=== PATIENT | female | born 1965 | race Two or more races ===

== ENCOUNTER 2025-04-03 09:14 | Outpatient (AMB) | payer OTHER, SELFPAY ==
--- NOTE | 2025-04-03 09:28 | ORTHONT_ITS ---
Vital signs 04/03/25 09:37 Height 1.52 m Height Method Stated Weight 91.852 kg Weight Measurement Method Standing Scale BMI 39.5 BP 124/78 Blood Pressure Source Automatic Cuff Blood Pressure Location Right Upper Arm Position Sitting Respiration 18 Pulse 90 Pulse Source Monitor Temp 97.5 F Temp Source Temporal Artery Scan Pulse Oximetry (%) 96 Oxygen Delivery Method Room Air Med/Allergies Allergies & Medications Allergies No Known Drug Allergies Allergy (Verified 04/03/25 09:38) Medication Reconciliation atorvastatin 20 mg tablet 20 mg PO QDAY 04/03/25 [History] canagliflozin 300 mg tablet 300 mg PO QAM 04/03/25 [History] celecoxib 200 mg capsule (Celebrex) 200 mg PO QDAY 04/03/25 [History Confirmed 04/03/25] dexlansoprazole 60 mg capsule,biphase delayed release 60 mg PO QDAY 04/03/25 [History Confirmed 04/03/25] diclofenac sodium 1 % topical gel 2 g topical QID 04/03/25 [History Confirmed 04/03/25] dicyclomine 10 mg/5 mL oral syrup 10 mg PO BID 04/03/25 [History Confirmed 04/03/25] epinephrine 0.3 mg/0.3 mL injection, auto-injector 0.3 mg IM Q5-15M PRN 04/03/25 [History Confirmed 04/03/25] ergocalciferol (vitamin D2) 50,000 unit tablet unit PO 04/03/25 [History Confirm ed 04/03/25] esomeprazole magnesium 20 mg capsule,delayed release ([employer] (esomeprazole)) 20 mg PO QDAY 04/03/25 [History Confirmed 04/03/25] famotidine 40 mg tablet 40 mg PO QDAY 04/03/25 [History Confirmed 04/03/25] fluconazole 200 mg tablet 200 mg PO QDAY 04/03/25 [History Confirmed 04/03/25] furosemide 40 mg tablet 40 mg PO BID 04/03/25 [History Confirmed 04/03/25] gabapentin 300 mg capsule 300 mg PO QDAY 04/03/25 [History Confirmed 04/03/25] hyoscyamine sulfate 0.125 mg tablet 0.125 mg PO QID 04/03/25 [History Confirmed 04/03/25] ibuprofen 800 mg tablet 800 mg PO Q6H 04/03/25 [History] insulin glargine 100 unit/mL (3 mL) subcutaneous pen 20 unit subcut BID 04/03/25 [History Confirmed 04/03/25] insulin lispro 100 unit/mL subcutaneous solution (Admelog U-100 Insulin lispro) 10 unit subcut TID 04/03/25 [History] linaclotide 290 mcg capsule 290 mcg PO QDAY 04/03/25 [History Confirmed 04/03/25] losartan 100 mg tablet 100 mg PO QDAY 04/03/25 [History Confirmed 04/03/25] metformin 1,000 mg tablet 1,000 mg PO QDAY 04/03/25 [History] naloxone 4 mg/actuation nasal spray 4 mg intranasal Q2M PRN 04/03/25 [History Confirmed 04/03/25] pioglitazone 30 mg tablet 30 mg PO QDAY 04/03/25 [History] polyethylene glycol ea miscellaneous 04/03/25 [History Confirmed 04/03/25] potassium chloride 20 mEq tablet,extended release 20 meq PO QDAY 04/03/25 [History Confirmed 04/03/25] tirzepatide 10 mg/0.5 mL subcutaneous pen injector 10 mg subcut QWEEK 04/03/25 [History Confirmed 04/03/25] tramadol 50 mg tablet 50 mg PO QDAY 04/03/25 [History] Exam Exam Patient is in no acute distress and is cooperative with the examination today. Breathing is nonlabored. Patient has a normal mood and affect. Bilateral extremities were evaluated and demonstrates sensation intact to light touch. Palpable pedal pulses are present. No significant edema is present. Bilateral hips were examined. The patient has no pain with log roll of the hips. Internal rotation to 30 degrees and external rotation to 30 degrees is painless. Negative FADIR. Right knee was examined today. The right knee is in reasonable alignment. Range of motion from 0-120 degrees. Knee is stable to varus and valgus as well as AP translation with <5mm. Patient has a negative McMurrays. There is no pain with patellofemoral compression and no crepitus noted. The knee is nontender to palpation. Left knee was examined today. The left knee is in varus alignment. Range of motion from 0-115 degrees. Knee is stable to varus and valgus as well as AP translation with <5mm. Patient has a negative McMurrays. There is no pain with patellofemoral compression and no crepitus noted. The knee is tender to palpation medially. Left ankle looks considerably swollen. It looks like a Charcot joint. Assessment and Plan Problem List (1) Pain in left knee: Status: Acute Plan: Patient is a pleasant 59-year-old female with bilateral knee pain and bilateral knee arthritis. I would like to get weightbearing x-rays to better evaluate the severity of the arthritis. I will see her back in approximately 1 to 2 weeks after x-rays are done. We discussed that injections may be difficult as her diabetes is currently uncontrolled. Will continue with conservative management at this time. 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 Level 4 (3891-1515) MA Intake Visit Data Collection New Patient or Established: New Patient (never been to [facility]) Seen by Clinical Staff ONLY (RN/MA): No 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 Primary Care Provider: [place] VELASCO G PCP or OBGYN visit in last 3 months: Yes Hx Now: No Do You Feel Safe at Home: Yes Authorities Contacted: N/A Questionairres Past Medical History Past Medical History Have you ever been diagnosed with any of the following: Neurological Problems Cerebrovascular Accident (CVA): No Transient Ischemic Attacks (TIA): No Dementia: No Alzheimer's Disease: No Parkinson's Disease: No Brain Tumor: No Meningitis: No Seizures: No Epilepsy: No Multiple Sclerosis: No Cerebral Palsy: No Amyotrophic Lateral Sclerosis (ALS/Dorita Gehrig's): No Guillain-[place] Syndrome: No Spina Bifida: No Paralysis: No Peripheral Neuropathy: No Dozier's Palsy: No Subdural Hematoma: No Migraine: No Head Trauma: No Spinal Cord Injury: No Traumatic Brain Injury: No Cardiology Problems Myocardial Infarction: No Cardiac Arrhythmia: No Atrial Fibrillation: No Angina: No Heart Murmur: No Coronary Artery Disease: No Atherosclerotic Heart Disease: No Peripheral Vascular Disease: No Hypercholesterolemia: No Aneurysm: No Congestive Heart Failure: No Congenital Heart Disease: No Valvular Heart Disease: No Rheumatic Fever: No Cardiomyopathy: No Edema: No Pericarditis: No Cellulitis: No Deep Vein Thrombosis: No Hypertension: Yes Hypotension: No Varicose Veins: No Respiratory Problems Chronic Obstructive Pulmonary Disease (COPD): No Asthma: No Bronchitis: No Emphysema: No Pneumonia: No Pulmonary Fibrosis: No Tuberculosis: No Pulmonary Embolism: No Pulmonary Edema: No Sleep Apnea: No CPAP Dependent: No Respiratory Aspiration: No Dyspnea: No Orthopnea: No Hx Cough: No Cough: No Wheezing: No Chest Deformities: No Smoking: No Smoking Cessation Counseling: No Smoking Exposure: No Tobacco Use: No Clubbing: No Exposure to Respiratory Irritants: No Intubation: No Stomache/Intestinal Problems Liver Cancer: No Hepatitis: No Cirrhosis: No Pancreatic Cancer: No Pancreatitis: No Celiac Disease: No Gall Bladder Disease: No Gastrointestinal Bleed: No Esophageal Varices: No Castaneda's Esophagus: No Colitis: No Ulcerative Colitis: No Diverticulitis: No Diverticulosis: No Ulcer: No Colorectal Cancer: No Irritable Bowel: No Crohn's Disease: No Obstructive Bowel: No Hiatal Hernia: No Hemorrhoids: No Gastroesophageal Reflux Disease: Yes Polyps: No Obesity: Yes Genital/Urinary Problems Chronic Kidney Disease: No Renal Disease: No Kidney Stones: No Polycystic Kidney Disease: No Neurogenic Bladder: No Inguinal Hernia: No Dialysis: No Reproductive Problems Breast Cancer: No Endometriosis: No Fibroids: No Genital Herpes: No Gonorrhea: No Pelvic Inflammatory Disease: No Polycystic Ovarian Syndrome: No Previous Pregnancies: No Syphilis: No Uterine Prolapse: No Musculoskeletal Problems Muscular Dystrophy: No Myasthenia Gravis: No Marfan's Syndrome: No Bone Cancer: No Arthritis: No Rheumatoid Arthritis: No Osteoporosis: No Degenerative Disk Disease: No Gout: No Scoliosis: No Carpal Tunnel Syndrome: No Fibromyalgia: No Fractures: No Degenerative Joint Disease: No Osteomyelitis: No Poliovirus: No Head,Eye,Nose,Throat Problems Cataracts: No Glaucoma: No Blind: No Retinal Detachment: No Macular Degeneration: No Chronic Ear Infections: No Deafness: No Eye Prosthesis: No Endocrine Problems Diabetes Mellitus Type 1: Yes Diabetes Mellitus Type 2: No Hypoglycemia: No [place]'s Syndrome: No [place]'s Disease: No Hyperthyroidism: No Hypothyroidism: No Thyroid Cancer: No Parathyroid Disease: No Pituitary Disease: No Systemic Lupus Erythematosus: No Syndrome of Inappropriate Antidiuretic Hormone: No Adrenal Disease: No Graves' Disease: No Blood Problems Anemia: No Leukemia: No Hemophilia: No Thalassemia: No Sickle Cell Disease: No Clotting Problems: No Psychologic Problems Schizophrenia: No Recreational Drug Use: No Bipolar Disorder: No Depression: No Anxiety: No Behavior Problems: No Self-Mutilation: No Attention Deficit Disorder: No Attention Deficit Hyperactivity Disorder: No Depression: No Post Traumatic Stress Disorder: No Eating Disorder: No Other Problems Hospitalization: No Autoimmune Disease: No Down Syndrome: No Autism: No Developmental Delay: No Cosmetic Surgery: No Shingles: No Falls: No Blood Transfusions: No Blood Transfusion Reaction: No Anesthesia Reactions: No Organ Transplant: No Chemotherapy: No Radiation Therapy: No Hyperbaric Therapy: No MRSA: No VRSA: No Vancomycin-Resistant Enterococci: No Human Immunodeficiency Virus (HIV): No Chicken Pox: No Measles: No Mumps: No Rubella (N[place]alese Measles): No Pertussis: No Klebsiella Pneumoniae Carbapenemase Producing Bacteria: No Clostridium Difficile: No Hepatitis A: No Hepatitis B: No Hepatitis C: No Communicable Disease: No Cancer: No Cervical Cancer: No Lung Cancer: No Ovarian Cancer: No Surgical History Angioplasty: No Appendectomy: No Bariatric Surgery: No Breast Surgery: No Cancer Surgery: No Carotid Endarterectomy: No Cholecystectomy: No Colectomy: No Colostomy: No Coronary Artery Bypass Graft: No Valve Replacement: No Herniorrhaphy: No Total Hip Replacement: No Total Knee Replacement: No Hysterectomy: No Pacemaker: No Sinus Surgery: No Splenectomy: No TAHBSO-Total Abdominal Hysterectomy: No Thyroidectomy: No Ureter Stent: No Subjective Visit Visit for: new patient and knee Immunization / Flu Flu Vaccine in the Last 12 Months: Yes Flu Vaccine Exclusion Criteria: Allergy to Eggs History of Present Illness Chief complaint: LEFT KNEE PAIN Rylee is a pleasant 72 female with bilateral knee pain. The left knee pain is worse than the right. She has tried injections in the past. She also has uncontrolled diabetes and Charcot ankle. She sees a cfo controller for this. She has not had any injections of the left knee recently. Personal History Occupation: RETIRED [employer] provided: Yes Pain Pain level (0-10): 8 Pain duration: ALL DAY Pain location: inside (medial) and outside (lateral) Pain quality: sharp Pain timing: night and increases with activity Associated signs & symptoms: numbness Ambulatory data Ambulatory device: none Treatments Number of previous injections: 1 Improvement with previous injections: Yes Number of Physical Therapy sessions: 0 Improvement with PT: No Improvement with NSAIDS: no Review of Systems Review of Systems: All systems negative unless otherwise noted in HPI.
[2025-04-03 09:37] VITALS: BP 124/78; PULSE 90; RESP 18; TEMP 36.4; O2SAT 96; BMI 39.5
--- NOTE | 2025-04-03 10:00 | XR_ITS ---
Examination: Bilateral knees 2 views Right lateral knee left lateral knee 2 views Bilateral axial knees single view TECHNIQUE: Bilateral AP knees standing single view, bilateral PA knees standing flexion single view Standing right lateral knee left lateral knee 2 views Bilateral axial knees single view Date and time: April 03, 2025 1025 hours INDICATIONS: Patient fell 3 years ago with injury to both knees, bilateral knee pain. FINDINGS: Bilateral advanced narrowing medial joint spaces Bilateral advanced osteoarthritis patellofemoral joints No fractures No patellar dislocation IMPRESSION: Bilateral advanced narrowing medial joint spaces
--- NOTE | 2025-04-03 10:00 | XR_ITS ---
Examination: Left ankle 2 views Technique one AP lateral left ankle 2 views Date and time: April 03, 2025 1036 hours INDICATIONS: Left ankle pain and swelling beginning 3 months ago. FINDINGS: Prominent bimalleolar soft tissue swelling Large plantar posterior bony calcaneal spurs. No acute fracture IMPRESSION: No acute fracture.
== END 2025-04-03 10:10 | disposition home or self-care (01) ==
LOC: HODSRG 09:14
PROVIDERS: Supervising Provider Orthopaedic Surgery Adult Reconstructive Orthopaedic Surgery; Visit Provider Orthopaedic Surgery Adult Reconstructive Orthopaedic Surgery
DX: M25.562 Pain in left knee (principal); M25.561 Pain in right knee; M17.0 Bilateral primary osteoarthritis of knee; I10 Essential (primary) hypertension; K21.9 Gastro-esophageal reflux disease without esophagitis; E10.9 Type 1 diabetes mellitus without complications
CPT/HCPCS: 73564; 73600; 99204; G0463

== ENCOUNTER 2025-04-18 10:02 | Outpatient (AMB) | payer OTHER, SELFPAY ==
--- NOTE | 2025-04-18 10:45 | ORTHONT_ITS ---
Vital signs 04/18/25 10:46 Height 1.52 m Height Method Measured Weight 93.213 kg Weight Measurement Method Standing Scale BMI 40.3 BP 100/62 Blood Pressure Source Automatic Cuff Blood Pressure Location Left Upper Arm Position Sitting Respiration 18 Pulse 92 Pulse Source Monitor Temp 97.3 F Temp Source Temporal Artery Scan Pulse Oximetry (%) 96 Oxygen Delivery Method Room Air Med/Allergies Allergies & Medications Allergies No Known Drug Allergies Allergy (Verified 04/18/25 10:55) Medication Reconciliation atorvastatin 20 mg tablet 20 mg PO QDAY 04/03/25 [History Confirmed 04/18/25] canagliflozin 300 mg tablet 300 mg PO QAM 04/03/25 [History Confirmed 04/18/25] celecoxib 200 mg capsule (Celebrex) 200 mg PO QDAY 04/03/25 [History Confirmed 04/18/25] dexlansoprazole 60 mg capsule,biphase delayed release 60 mg PO QDAY 04/03/25 [History Confirmed 04/18/25] diclofenac sodium 1 % topical gel 2 g topical QID 04/03/25 [History Confirmed 04/18/25] dicyclomine 10 mg/5 mL oral syrup 10 mg PO BID 04/03/25 [History Confirmed 04/18/25] epinephrine 0.3 mg/0.3 mL injection, auto-injector 0.3 mg IM Q5-15M PRN 04/03/25 [History Confirmed 04/18/25] ergocalciferol (vitamin D2) 50,000 unit tablet unit PO 04/03/25 [History Confirmed 04/18/25] esomeprazole magnesium 20 mg capsule,delayed release (Acid Electrical Control Assembler (esomeprazole)) 20 mg PO QDAY 04/03/25 [History Confirmed 04/18/25] famotidine 40 mg tablet 40 mg PO QDAY 04/03/25 [History Confirmed 04/18/25] fluconazole 200 mg tablet 200 mg PO QDAY 04/03/25 [History Confirmed 04/18/25] furosemide 40 mg tablet 40 mg PO BID 04/03/25 [History Confirmed 04/18/25] gabapentin 300 mg capsule 300 mg PO QDAY 04/03/25 [History Confirmed 04/18/25] hyoscyamine sulfate 0.125 mg tablet 0.125 mg PO QID 04/03/25 [History Confirmed 04/18/25] ibuprofen 800 mg tablet 800 mg PO Q6H 04/03/25 [History Confirmed 04/18/25] insulin glargine 100 unit/mL (3 mL) subcutaneous pen 20 unit subcut BID 04/03/25 [History Confirmed 04/18/25] insulin lispro 100 unit/mL subcutaneous solution (Admelog U-100 Insulin lispro) 10 unit subcut TID 04/03/25 [History Confirmed 04/18/25] linaclotide 290 mcg capsule 290 mcg PO QDAY 04/03/25 [History Confirmed 04/18/25] losartan 100 mg tablet 100 mg PO QDAY 04/03/25 [History Confirmed 04/18/25] metformin 1,000 mg tablet 1,000 mg PO QDAY 04/03/25 [History Confirmed 04/18/25] naloxone 4 mg/actuation nasal spray 4 mg intranasal Q2M PRN 04/03/25 [History Confirmed 04/18/25] pioglitazone 30 mg tablet 30 mg PO QDAY 04/03/25 [History Confirmed 04/18/25] polyethylene glycol ea miscellaneous 04/03/25 [History Confirmed 04/18/25] potassium chloride 20 mEq tablet,extended release 20 meq PO QDAY 04/03/25 [History Confirmed 04/18/25] tirzepatide 10 mg/0.5 mL subcutaneous pen injector 10 mg subcut QWEEK 04/03/25 [History Confirmed 04/18/25] tramadol 50 mg tablet 50 mg PO QDAY 04/03/25 [History Confirmed 04/18/25] Exam Exam Patient is in no acute distress and is cooperative with the examination today. Breathing is nonlabored. Patient has a normal mood and affect. Bilateral extremities were evaluated and demonstrates sensation intact to light touch. Palpable pedal pulses are present. No significant edema is present. Bilateral hips were examined. The patient has no pain with log roll of the hips. Internal rotation to 30 degrees and external rotation to 30 degrees is painless. Negative FADIR. Right knee was examined today. The right knee is in reasonable alignment. Range of motion from 0-120 degrees. Knee is stable to varus and valgus as well as AP translation with <5mm. Patient has a negative McMurrays. There is no pain with patellofemoral compression and no crepitus noted. The knee is nontender to palpation. Left knee was examined today. The left knee is in varus alignment. Range of motion from 0-115 degrees. Knee is stable to varus and valgus as well as AP translation with <5mm. Patient has a negative McMurrays. There is no pain with patellofemoral compression and no crepitus noted. The knee is tender to palpation medially. Assessment and Plan Problem List (1) Pain in left knee: Status: Acute Plan: Patient is a pleasant 59-year-old female with bilateral knee pain and bilateral knee arthritis. I would like to get weightbearing x-rays to better evaluate the severity of the arthritis. I will see her back in approximately 1 to 2 weeks after x-rays are done. We discussed that injections may be difficult as her diabetes is currently uncontrolled. Will continue with conservative management at this time. She is not a great operative candidate due to her Charcot arthritis Bilateral knee xrays demonstrate significant joint space narrowing medially. She reports that her hemoglobin A1c is 8.5 in [place] 3 months. We will give her an injection if her sugars can be more controlled. Her fasting sugar today was around 160 Office Procedures GNS Level of Care Nursing/Assessment Patient Status: Established Patient Nursing Assessment/Reassesment: Medication Reconciliation, Update PMH in EMR and Vital Signs Coordination of Care: Complex Care and Chronic Disease 1-5, Education Complex Pt/Fam, Consent,records obtained, informed consent, Results/Orders obtained and Staff clarify orders Special Needs: Language special needs Established Patient Charge Established Patient Point Assignment: 95 Established Patient Point Charge: EP Level 3 (80-115) MA Intake Visit Data Collection New Patient or Established: Established Patient (seen at [facility] within 3 years) Reason for Visit:: F/U XRAY RESULTS Seen by Clinical Staff ONLY (RN/MA): No 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 PCP or OBGYN visit in last 3 months: Yes Hx Now: No Do You Feel Safe at Home: Yes Authorities Contacted: N/A Questionairres Past Medical History Past Medical History Have you ever been diagnosed with any of the following: Neurological Problems Cerebrovascular Accident (CVA): No Transient Ischemic Attacks (TIA): No Dementia: No Alzheimer's Disease: No Parkinson's Disease: No Brain Tumor: No Meningitis: No Seizures: No Epilepsy: No Multiple Sclerosis: No Cerebral Palsy: No Amyotrophic Lateral Sclerosis (ALS/Dorita Gehrig's): No Guillain-Logsden Syndrome: No Spina Bifida: No Paralysis: No Peripheral Neuropathy: No Dozier's Palsy: No Subdural Hematoma: No Migraine: No Head Trauma: No Spinal Cord Injury: No Traumatic Brain Injury: No Cardiology Problems Myocardial Infarction: No Cardiac Arrhythmia: No Atrial Fibrillation: No Angina: No Heart Murmur: No Coronary Artery Disease: No Atherosclerotic Heart Disease: No Peripheral Vascular Disease: No Hypercholesterolemia: No Aneurysm: No Congestive Heart Failure: No Congenital Heart Disease: No Valvular Heart Disease: No Rheumatic Fever: No Cardiomyopathy: No Edema: No Pericarditis: No Cellulitis: No Deep Vein Thrombosis: No Hypertension: Yes Hypotension: No Varicose Veins: No Respiratory Problems Chronic Obstructive Pulmonary Disease (COPD): No Asthma: No Bronchitis: No Emphysema: No Pneumonia: No Pulmonary Fibrosis: No Tuberculosis: No Pulmonary Embolism: No Pulmonary Edema: No Sleep Apnea: No CPAP Dependent: No Respiratory Aspiration: No Dyspnea: No Orthopnea: No Hx Cough: No Cough: No Wheezing: No Chest Deformities: No Smoking: No Smoking Cessation Counseling: No Smoking Exposure: No Tobacco Use: No Clubbing: No Exposure to Respiratory Irritants: No Intubation: No Stomache/Intestinal Problems Liver Cancer: No Hepatitis: No Cirrhosis: No Pancreatic Cancer: No Pancreatitis: No Celiac Disease: No Gall Bladder Disease: No Gastrointestinal Bleed: No Esophageal Varices: No Castaneda's Esophagus: No Colitis: No Ulcerative Colitis: No Diverticulitis: No Diverticulosis: No Ulcer: No Colorectal Cancer: No Irritable Bowel: No Crohn's Disease: No Obstructive Bowel: No Hiatal Hernia: No Hemorrhoids: No Gastroesophageal Reflux Disease: Yes Obesity: Yes Genital/Urinary Problems Renal Disease: No Kidney Stones: No Polycystic Kidney Disease: No Neurogenic Bladder: No Inguinal Hernia: No Dialysis: No Reproductive Problems Breast Cancer: No Endometriosis: No Fibroids: No Genital Herpes: No Gonorrhea: No Pelvic Inflammatory Disease: No Polycystic Ovarian Syndrome: No Previous Pregnancies: No Syphilis: No Uterine Prolapse: No Musculoskeletal Problems Muscular Dystrophy: No Myasthenia Gravis: No Marfan's Syndrome: No Bone Cancer: No Arthritis: No Rheumatoid Arthritis: No Osteoporosis: No Degenerative Disk Disease: No Gout: No Scoliosis: No Carpal Tunnel Syndrome: No Fibromyalgia: No Fractures: No Degenerative Joint Disease: No Osteomyelitis: No Poliovirus: No Head,Eye,Nose,Throat Problems Cataracts: No Glaucoma: No Blind: No Retinal Detachment: No Macular Degeneration: No Chronic Ear Infections: No Deafness: No Eye Prosthesis: No Endocrine Problems Diabetes Mellitus Type 1: Yes Diabetes Mellitus Type 2: No Hypoglycemia: No Hobart's Syndrome: No Tad's Disease: No Hyperthyroidism: No Hypothyroidism: No Thyroid Cancer: No Parathyroid Disease: No Pituitary Disease: No Systemic Lupus Erythematosus: No Syndrome of Inappropriate Antidiuretic Hormone: No Adrenal Disease: No Graves' Disease: No Blood Problems Anemia: No Leukemia: No Hemophilia: No Thalassemia: No Sickle Cell Disease: No Clotting Problems: No Psychologic Problems Schizophrenia: No Recreational Drug Use: No Bipolar Disorder: No Depression: No Anxiety: No Behavior Problems: No Self-Mutilation: No Attention Deficit Disorder: No Attention Deficit Hyperactivity Disorder: No Depression: No Post Traumatic Stress Disorder: No Eating Disorder: No Other Problems Hospitalization: No Down Syndrome: No Autism: No Developmental Delay: No Cosmetic Surgery: No Shingles: No Falls: No Blood Transfusions: No Blood Transfusion Reaction: No Anesthesia Reactions: No Organ Transplant: No Chemotherapy: No Radiation Therapy: No Hyperbaric Therapy: No MRSA: No VRSA: No Vancomycin-Resistant Enterococci: No Human Immunodeficiency Virus (HIV): No Chicken Pox: No Measles: No Mumps: No Rubella (Tamazight Measles): No Pertussis: No Klebsiella Pneumoniae Carbapenemase Producing Bacteria: No Clostridium Difficile: No Hepatitis A: No Hepatitis B: No Hepatitis C: No Communicable Disease: No Cancer: No Cervical Cancer: No Lung Cancer: No Ovarian Cancer: No Surgical History Angioplasty: No Appendectomy: No Bariatric Surgery: No Breast Surgery: No Cancer Surgery: No Carotid Endarterectomy: No Cholecystectomy: No Colectomy: No Colostomy: No Coronary Artery Bypass Graft: No Valve Replacement: No Herniorrhaphy: No Total Hip Replacement: No Total Knee Replacement: No Hysterectomy: No Pacemaker: No Sinus Surgery: No Splenectomy: No TAHBSO-Total Abdominal Hysterectomy: No Thyroidectomy: No Ureter Stent: No Subjective Visit Visit for: follow up visit and knee Immunization / Flu Flu Vaccine in the Last 12 Months: No Flu Vaccine Exclusion Criteria: No Exclusion Criteria History of Present Illness Chief complaint: F/U XRAY RESULTS Rylee is a pleasant 72 female with bilateral knee pain. The left knee pain is worse than the right. She has tried injections in the past. She also has uncontrolled diabetes and Charcot ankle. She sees a concrete rod buster for this. She has not had any injections of the left knee recently. Personal History Occupation: RETIRED [employer] provided: Yes Pain Pain level (0-10): 4 Pain duration: ALL DAY Pain location: inside (medial) and outside (lateral) Pain quality: aching Pain timing: night Associated signs & symptoms: none Ambulatory data Ambulatory device: none Treatments Number of previous injections: 1 Improvement with previous injections: No Number of Physical Therapy sessions: 0 Improvement with PT: No Improvement with NSAIDS: yes Review of Systems Review of Systems: All systems negative unless otherwise noted in HPI.
[2025-04-18 10:46] VITALS: BP 100/62; PULSE 92; RESP 18; TEMP 36.3; O2SAT 96; BMI 40.3
== END 2025-04-18 11:01 | disposition home or self-care (01) ==
LOC: HODSRG 10:02
PROVIDERS: Supervising Provider Orthopaedic Surgery Adult Reconstructive Orthopaedic Surgery; Visit Provider Orthopaedic Surgery Adult Reconstructive Orthopaedic Surgery
DX: M25.562 Pain in left knee (principal); M25.561 Pain in right knee; M17.0 Bilateral primary osteoarthritis of knee; M14.679 Charcot's joint, unspecified ankle and foot; E11.9 Type 2 diabetes mellitus without complications
CPT/HCPCS: 99213; G0463